=== PATIENT | male | born 1980 | race Caucasian/White ===

== ENCOUNTER 2024-12-18 11:22 | Inpatient (IN) ==
[2024-12-18 12:23] LABS: Hematocrit (blood only) 49.1 % (42.0-52.0); Hemoglobin 17.5 g/dl (14.0-18.0); Mean Corpuscular Hemoglobin 29.9 pg (25.0-34.0); Mean Corpuscular Hgb Conc 35.6 g/dL (32.0-36.0); Mean Corpuscular Volume 83.8 fL (80.0-100.0); Mean Platelet Volume 9.9 fL (9.4-12.4); Platelet Count 243 K/uL (130-400); RDW Standard Deviation 36.6 fL (36.4-46.3); Red Blood Count 5.86 M/uL (4.70-6.10); White Blood Count 5.83 K/ul (4.8-10.8)
[2024-12-18 12:35] LABS: Albumin Globulin Ratio 1.3 (0.9-2); Albumin Level 5.1 gm/dl (3.4-5.0); BUN Creatinine Ratio 7.3 (10-20); Bilirubin,Total 1.4 mg/dl (0.2-1.0); Calcium 9.5 mg/dl (8.6-10.3); Creatinine Clr Calc Pharmacy 27.6 ml/min; Globulin 3.8 gm/dl (2.5-4.0); Potassium 3.4 mmol/L (3.5-5.1); Total Protein 8.9 gm/dl (6.0-8.3)
[2024-12-18 12:51] LABS: Basophils # (auto) 0.06 K/uL (0.00-0.20); Dohle Bodies 1+; Eosinophils # (auto) 0.02 K/uL (0.00-0.50); Eosinophils % (auto) 0.3 %; Immature Granulocytes # (auto) 0.05 K/uL (0.01-0.20); Immature Granulocytes % (auto) 0.9 %; Lymphocytes # (auto) 0.45 K/uL (1.20-3.40); Lymphocytes % (auto) 7.7 %; Monocytes # (auto) 0.51 K/uL (0.11-0.59); Monocytes % (auto) 8.7 %; Neutrophils # (auto) 4.74 K/uL (1.40-6.50); Neutrophils % (auto) 81.4 %; Toxic Vacuolation 2+
--- NOTE | 2024-12-18 12:53 | Emergency Department Note ---
Impression & Plan Salmonella gastroenteritis, ROMAINE (acute kidney injury), Hypokalemia, Dehydration, Hyponatremia, Nausea vomiting and diarrhea, Recent foreign travel ED Provider Note CHIEF COMPLAINT: Diarrhea, chills, nausea, fatigue HISTORY OF PRESENTING ILLNESS: The patient is a 44-year-old male who presents to the emergency department stating that he has had nonstop diarrhea for the past 2 days. Confirms recent travel to [facility]. 1 episode of vomiting today and intermittent abdominal pain. He states that he is exhausted and feels very weak. Denies fevers, chest pain, shortness of breath, URI symptoms, urinary symptoms, sick contacts. REVIEW OF SYSTEMS: See HPI for pertinent positives and pertinent negatives. ALLERGIES: NKDA MEDICATIONS: Tamsulosin PAST MEDICAL HISTORY: See below PHYSICAL EXAM: VITALS: Vitals are noted on the nurse's note and reviewed by myself. Vital signs stable. GENERAL: 44-year-old male, ill-appearing, sitting hunched over wrapped in a blanket, in no acute distress, nondiaphoretic, well-developed well-nourished. SKIN: Capillary refill less than 2 seconds. HEENT: Normocephalic. PERRLA. EOMI. Nares patent. Mucous membranes moist. Neck is supple without nuchal rigidity. HEART: Regular rate and rhythm without murmurs gallops or rubs. LUNGS: Clear to auscultation bilaterally without wheezes, rales or rhonchi. No retractions or accessory muscle use. ABDOMEN: Positive bowel sounds x 4. A mild amount of diffuse tenderness upon palpation. Soft, without masses or organomegaly. No guarding rebound tenderness. NEURO: Patient was alert and oriented. No focal neurological deficits. DIFFERENTIAL DIAGNOSIS: Gastroenteritis, C. difficile, Crohn's disease, ulcerative colitis, food poisoning, food allergy, antibiotic side effect, toxic ingestion or exposure, among others. ED COURSE AND MEDICAL DECISION MAKING: HISTORY FROM INDEPENDENT HISTORIAN: The patient himself and his . MEDICATIONS GIVEN: INTERPRETATION OF LABS: I interpreted the labs with full lab results as below in the lab section of this note. Pertinent lab results discussed in the MDM section below. INTERPRETATION OF IMAGING: Imaging studies were interpreted by myself and read by radiology as per the imaging section of this note. CONSULTATIONS: [facility] on-call hospitalist - I presented the patient to the on-call hospitalist and informed them of his Salmonella GI infection, acute kidney injury, and electrolyte abnormalities. On exam the patient was weak appearing and was unable to tolerate oral fluids and food. The patient was admitted to medicine and they confirmed that they would evaluate the patient. MDM SUMMARY: The patient is a 44-year-old male presents the emergency department stating that he has had nonstop diarrhea for the past 2 days. Confirms recent travel to [facility]. 1 episode of vomiting today and intermittent abdominal pain. Denies fevers, chest pain, shortness of breath, URI symptoms, urinary symptoms, and sick contacts. On exam the patient is ill-appearing and is sitting hunched over wrapped in a blanket. His vitals are stable and he is afebrile. Capillary refill is less than 2 seconds. HEENT exam is unremarkable. Chest auscultation reveals RRR without murmurs. The lungs are clear to auscultation bilaterally. Positive bowel sounds appreciated in all 4 quadrants. A mild amount of diffuse tenderness upon palpation. Soft without masses. Patient confirms that he feels exhausted and very weak. He is not able to tolerate oral fluids and food. Due to the patient's symptoms a CBC, CMP, urinalysis, and stool BioFire was ordered. 4 mg Zofran IV, 1000 mg Tylenol, and 1 L normal saline was given for symptom management. No leukocytosis WBC normal 523. RBC normal 5.86. Hemoglobin hematocrit normal 17.5/49.1. Sodium lowered 134. Potassium low at 3.4. Chloride lowered 93. BUN elevated 28. Creatinine elevated 3.86. Total bilirubin elevated 1.4. Magnesium normal 1.9. Urinalysis shows 2+ protein, trace ketones, 1+ blood. Stool BioFire results positive for Salmonella. Patient was informed of all of his laboratory results. Due to the patient's significant dehydration, electrolyte abnormalities, and ROMAINE the patient was admitted to the hospitalist team. [facility] hospitalist consultation can be seen in detail above. The patient was admitted to medicine and the remainder of his care was provided by the hospitalist medicine team. All the patient's questions were answered. DIAGNOSIS: Salmonella gastroenteritis, ROMAINE, hypokalemia, dehydration, hyponatremia, nausea and vomiting, diarrhea, recent foreign travel The chart was completed utilizing [employer] [place] voice recognition software. Grammatical errors, random word insertions, pronoun errors, and incomplete sentences are an occasional consequence of this system due to software limitations, ambient noise, and hardware issues. Any formal questions or concerns about the content, text, or information contained within the body of this dictation should be directly addressed to the provider for clarification. Past Med/Surg History Problem List (Updated 12/18/24 @ 17:47 by Chelsea Cedeno PA-C) Recent foreign travel (Acute) Nausea vomiting and diarrhea (Acute) Hyponatremia (Acute) Dehydration (Acute) Hypokalemia (Acute) BPH (benign prostatic hyperplasia) ROMAINE (acute kidney injury) (Acute) Salmonella gastroenteritis (Acute) Social History Smoking Status: Never smoker Hx Alcohol Use: No Hx Substance Use: No Preferred Language: Czech Communication Ability: Effective General Partner Required: No Current Living Situation: Spouse Feels Safe at Home: Yes Safety Concerns: Feels Safe At This Time Assistive Devices: None Allergies Allergies Allergy/AdvReac Type Severity Reaction Status Date / Time No Known Allergies Allergy Unverified 12/18/24 13:21 Home Meds Home Medications Medication Instructions Recorded Confirmed tamsulosin 0.4 mg capsule 0.4 mg PO HS 12/18/24 12/18/24 zolpidem 10 mg tablet 10 mg PO HS PRN Sleep 12/18/24 12/18/24 Results & Data (ED) Vital Signs Vital Signs - 24 hr 12/18/24 11:35 12/18/24 13:52 12/18/24 13:56 Temperature 36.9 C Temperature Source Temporal Artery Scan Pulse Rate 97 H 85 Pulse Rate [Apical] 82 Respiratory Rate 20 18 Respiratory Effort / Characteristics Non-Labored Non-Labored Spontaneous Respiratory Depth Normal Blood Pressure 113/77 Blood Pressure [Right Arm] 108/87 Blood Pressure Mean 89 Blood Pressure Mean [Right Arm] 94 Blood Pressure Position [Right Arm] Lying Pulse Oximetry 99 95 Oxygen Delivery Method Room Air Room Air Sepsis Recent Fever Within 48 Hours No Sepsis New/Unexplained Change in Mental Status No Sepsis Action Taken by Nursing No Action Required Laboratory Data 12/19/24 07:01 12/19/24 07:01 Lab Results 12/18/24 12/18/24 Range/Units 12:05 12:06 WBC 5.83 (4.8-10.8) K/ul RBC 5.86 (4.70-6.10) M/uL Hgb 17.5 (14.0-18.0) g/dl Hct 49.1 (42.0-52.0) % MCV 83.8 (80.0-100.0) fL MCH 29.9 (25.0-34.0) pg MCHC 35.6 (32.0-36.0) g/dL RDW Std Deviation 36.6 (36.4-46.3) fL RDW Coeff of Carie 12.0 (11.5-14.5) % Plt Count 243 (130-400) K/uL MPV 9.9 (9.4-12.4) fL Immature Gran % (Auto) 0.9 % Neut % (Auto) 81.4 % Lymph % (Auto) 7.7 % [place] % (Auto) 8.7 % Eos % (Auto) 0.3 % Baso % (Auto) 1.0 % Neut # (Auto) 4.74 (1.40-6.50) K/uL Lymph # (Auto) 0.45 L (1.20-3.40) K/uL [place] # (Auto) 0.51 (0.11-0.59) K/uL Eos # (Auto) 0.02 (0.00-0.50) K/uL Baso # (Auto) 0.06 (0.00-0.20) K/uL Immature Gran # (Auto) 0.05 (0.01-0.20) K/uL Toxic Vacuolation 2+ Dohle Bodies 1+ Sodium 134 L (136-145) mmol/L Potassium 3.4 L (3.5-5.1) mmol/L Chloride 93 L (98-107) mmol/L Carbon Dioxide 26 (21-32) mmol/L Anion Gap 15 H (3-11) BUN 28 H (6-23) mg/dl Creatinine 3.86 H (0.6-1.4) mg/dl Est Cr Clr Drug Dosing 27.6 ml/min eGFR 18.59 BUN/Creatinine Ratio 7.3 L (10-20) Glucose 127 H (70-99(Fasting)) mg/dl Calcium 9.5 (8.6-10.3) mg/dl Magnesium 1.9 (1.7-2.4) mg/dl Total Bilirubin 1.4 H (0.2-1.0) mg/dl AST 19 (13-39) U/L ALT 20 (7-52) U/L Alkaline Phosphatase 64 (34-104) U/L Total Protein 8.9 H (6.0-8.3) gm/dl Albumin 5.1 H (3.4-5.0) gm/dl Globulin 3.8 (2.5-4.0) gm/dl Albumin/Globulin Ratio 1.3 (0.9-2) Stl C. cayetanensis PCR Not Detected (NotDetected) Stool Rotavirus A PCR Not Detected (NotDetected) Stl Adenov F 40/41 PCR Not Detected (NotDetected) Stool Astrovirus (PCR) Not Detected (NotDetected) Stool Campylobacter PCR Not Detected (NotDetected) Stool Cryptosporidium PCR Not Detected (NotDetected) Stl E.coli Shiga Tox PCR Not Detected (NotDetected) Stl Enterotoxigenic E PCR Not Detected (NotDetected) Stool EPEC (PCR) Not Detected (NotDetected) Stool EAEC (PCR) Not Detected (NotDetected) Stl E. histolytica PCR Not Detected (NotDetected) Stool Giardia Lamblia PCR Not Detected (NotDetected) Stool Salmonella PCR DETECTED A* (NotDetected) Stool Sapovirus (PCR) Not Detected (NotDetected) Stl P. shigelloides PCR Not Detected (NotDetected) Stl Shigella/EIEC PCR Not Detected (NotDetected) St Y.enterocolitica PCR Not Detected (NotDetected) Stool Vibrio (PCR) Not Detected (NotDetected) Stl Vibrio cholerae PCR Not Detected (NotDetected) Stl Norovirus GI/GII PCR Not Detected (NotDetected) Administered Medications Heparin Sodium (Porcine) (Heparin Sod 5,000 Unit/0.5 Ml Vial) 5,000 units SQ Q12 CHELY Stop: 01/17/25 20:59 Last Admin: 12/19/24 07:55 Dose: Not Given Documented By: Admin: 12/18/24 20:20 Dose: 5,000 units Documented By: MAGY Ceftriaxone Sodium (Rocephin) 2,000 mg in 50 mls @ 100 mls/hr IV Q24H CHELY Stop: 12/29/24 13:59 Last Infusion: 12/19/24 14:06 Dose: Infused Documented By: Admin: 12/19/24 13:04 Dose: 100 mls/hr Documented By: ASHLEY Tamsulosin HCl (Tamsulosin Hcl 0.4 Mg Cap) 0.4 mg PO HS CHELY Stop: 01/17/25 20:59 Last Admin: 12/18/24 20:20 Dose: 0.4 mg Documented By: MAGY Discontinued Medications Acetaminophen (Ofirmev) 1,000 mg in 100 mls @ 400 mls/hr IV NOW STA Stop: 12/18/24 13:35 Last Infusion: 12/18/24 14:22 Dose: Infused Documented By: JOSE ALEJANDRO Admin: 12/18/24 13:47 Dose: 400 mls/hr Documented By: JOSE ALEJANDRO Sodium Chloride (Nss) 1,000 mls @ 999 mls/hr IV .Q1H1M ONE Stop: 12/18/24 14:21 Last Infusion: 12/18/24 14:46 Dose: Infused Documented By: JOSE ALEJANDRO Admin: 12/18/24 13:46 Dose: 999 mls/hr Documented By: JOSE ALEJANDRO Ceftriaxone Sodium (Rocephin) 2,000 mg in 50 mls @ 100 mls/hr IV Q24H CHELY Stop: 12/20/24 14:14 Last Infusion: 12/18/24 16:24 Dose: Infused Documented By: JOSE ALEJANDRO Admin: 12/18/24 14:22 Dose: 100 mls/hr Documented By: JOSE ALEJANDRO Lactated Ringer's (Lr) 1,000 mls @ 125 mls/hr IV .Q8H CHELY Stop: 12/19/24 15:44 Last Infusion: 12/19/24 16:00 Dose: Infused Documented By: Admin: 12/19/24 07:53 Dose: 125 mls/hr Documented By: Infusion: 12/19/24 07:53 Dose: Infused Documented By: Admin: 12/19/24 00:27 Dose: 125 mls/hr Documented By: Infusion: 12/19/24 00:14 Dose: Infused Documented By: Admin: 12/18/24 16:14 Dose: 125 mls/hr Documented By: JOSE ALEJANDRO Potassium Chloride (K Paul / Wtr) 10 meq in 100 mls @ 100 mls/hr IV Q1H CHELY Stop: 12/18/24 18:59 Last Infusion: 12/18/24 20:20 Dose: Infused Documented By: Admin: 12/18/24 19:15 Dose: 100 mls/hr Documented By: Infusion: 12/18/24 18:40 Dose: Infused Documented By: Admin: 12/18/24 17:19 Dose: 100 mls/hr Documented By: Infusion: 12/18/24 17:19 Dose: Infused Documented By: Admin: 12/18/24 16:20 Dose: 100 mls/hr Documented By: JOSE ALEJANDRO Magnesium Sulfate/Dextrose (Magnesium Sulfate / D5w) 1 gm in 100 mls @ 100 mls/hr IV NOW STA Stop: 12/18/24 16:50 Last Infusion: 12/18/24 17:20 Dose: Infused Documented By: Admin: 12/18/24 16:16 Dose: 100 mls/hr Documented By: JOSE ALEJANDRO Potassium Chloride (K Paul / Wtr) 10 meq in 100 mls @ 100 mls/hr IV Q1H CHELY Stop: 12/19/24 17:14 Last Infusion: 12/19/24 17:41 Dose: Infused Documented By: Admin: 12/19/24 16:30 Dose: 100 mls/hr Documented By: Infusion: 12/19/24 16:30 Dose: Infused Documented By: Admin: 12/19/24 15:34 Dose: 100 mls/hr Documented By: ASHLEY Loperamide HCl (Loperamide Hcl 2 Mg Cap) 2 mg PO NOW STA Stop: 12/19/24 02:36 Last Admin: 12/19/24 02:52 Dose: 2 mg Documented By: MAGY Ondansetron HCl (Ondansetron Inj 2 Mg/Ml 2 Ml Vial) 4 mg IV NOW STA Stop: 12/18/24 13:22 Last Admin: 12/18/24 13:46 Dose: 4 mg Documented By: JOSE ALEJANDRO Potassium Chloride (Potassium Chloride Crtab 20 Meq Tabcr) 40 meq PO NOW STA Stop: 12/19/24 15:10 Last Admin: 12/19/24 15:35 Dose: 40 meq Documented By: ASHLEY Discharge Plan Visit Data Chief Complaint: Flu Like Symptoms Stated Complaint: DIARRHEA, CHILLS, NAUSEA, FATIGUE ED Provider: Cheri Roberts ED Midlevel Provider: Chelsea Cedeno Discharge Problem: Salmonella gastroenteritis, ROMAINE (acute kidney injury), Hypokalemia, Dehydration, Hyponatremia, Nausea vomiting and diarrhea, Recent foreign travel Patient Disposition: Admitted As Inpatient Condition: Good Discharge Instructions Interventions: ED Discharge Assessment Last Done: 12/18/24 16:47
[2024-12-18 13:36] LABS: Adenovirus F 40/41 PCR Not Detected (NotDetected); Astrovirus PCR Not Detected (NotDetected); Campylobacter PCR Not Detected (NotDetected); Cryptosporidium PCR Not Detected (NotDetected); Cyclospora cayetanensis PCR Not Detected (NotDetected); Entamoeba histolytica PCR Not Detected (NotDetected); Enteroaggregative E.coli(EAEC) Not Detected (NotDetected); Enteropathogenic E.coli (EPEC) Not Detected (NotDetected); Enterotoxigenic E.coli (ETEC) Not Detected (NotDetected); Giardia lamblia PCR Not Detected (NotDetected); Norovirus GI/GII PCR Not Detected (NotDetected); Plesiomonas shigelloides PCR Not Detected (NotDetected); Rotavirus A PCR Not Detected (NotDetected); Sapovirus PCR Not Detected (NotDetected); Shiga-like Toxin E.coli (STEC) Not Detected (NotDetected); Shigella/Enteroinvasive E.coli Not Detected (NotDetected); Vibrio cholerae PCR Not Detected (NotDetected); Vibrio species PCR Not Detected (NotDetected); Yersinia enterocolitica PCR Not Detected (NotDetected)
[2024-12-18] MEDS: SODIUM CHLORIDE 0.9% 1,000 ML IV ONE (13:46)
[2024-12-18] MEDS: ONDANSETRON INJ 2 MG/ML 2 ML VIAL IV STA (13:46)
[2024-12-18] MEDS: ACETAMINOPHEN 1,000 MG/100 ML VIAL IV STA (13:47)
[2024-12-18 14:05] LABS: Salmonella PCR DETECTED (NotDetected)
[2024-12-18] MEDS: cefTRIAXone SODIUM 2,000 MG/50 ML BAG IV SCH (14:22)
--- NOTE | 2024-12-18 14:42 | History & Physical Report ---
Date of Service December 18, 2024 Assessment & Plan (1) Dehydration: (2) Salmonella gastroenteritis: Plan: Raf Cantu is a relatively healthy 44y/o M with PMHx significant for BPH with LUTS and mild intermittent asthma without complication who presented to the ED with complaints of nausea, vomiting and diarrhea since last Wednesday after a recent trip to [facility]. Found to have an ROMAINE in the setting of poor oral intake 2/2 salmonella gastroenteritis. Relatively hypotensive but otherwise VSS on admission. Initial laboratory evaluation reviewed. No leukocytosis. Stool salmonella PCR positive. Lactate negative. S/p 2g IV Rocephin and 1L NSS in ED. Contact precautions. Continue IV Rocephin 2g Q24H and fluid resuscitation as per below given ROMAINE. PRN antiemetics. (3) ROMAINE (acute kidney injury): Plan: Noted to have an ROMAINE with Cr of 3.86 on admission. Baseline Cr ~1.1-1.2 per chart review. Suspect due to hypovolemia/dehydration in the setting of underlying gastrointestinal illness as per above. BUN 28. Currently producing urine; will defer additional lab/imaging diagnostic pending fluid resuscitation. S/p 1L NSS in ED; continue LR's @ 125cc/hr for now. Avoid nephrotoxic medications when able. Monitor renal function closely with daily labs and renally dose medications when able. (4) Hypokalemia: Plan: Likely 2/2 poor oral intake as per above. K+ 3.4 on admission. Replete with 10mEq KCl x 3 bags for now. Continue to monitor and replete PRN. (5) BPH (benign prostatic hyperplasia): Plan: Chronic, stable. Follows with [facility]. Continue Flomax. DVT Prophylaxis: SQ Heparin Code Status: FULL CODE PCP: Chen Frankel, Disposition: Admit to med/telemetry for further inpatient evaluation and management. Patient seen in collaboration with Dr. Coburn. Please see addendum. I spent a total of 45 minutes coordinating, documenting, and providing care for this patient excluding time spent in the performance of separately billed services or time spent by another provider/QHP. This included personally reviewing all current laboratories and imaging studies, medical reconciliation, outpatient chart review and discussion with specialists. This chart was completed in part utilizing Speech Voice Recognition Software. Grammatical errors, random word insertions, pronoun errors, and incomplete sentences are an occasional consequence of this system due to software limitations, ambient noise, and hardware issues. Any formal questions or concerns about the content, text, or information contained within the body of this dictation should be directly addressed to the provider for clarification. History of Present Illness Chief Complaint: N/V/D, Dehydration Primary Care Provider: NO PCP Raf Cantu is a relatively healthy 44y/o M with PMHx significant for BPH with LUTS and mild intermittent asthma without complication who presented to the ED with complaints of nausea, vomiting and diarrhea since last Wednesday. History obtained from the patient, at bedside, discussion with ED provider and associated chart review. Recent travel to [facility] for vacation. Traveled home over the weekend. Started to develop loose, watery diarrhea last Wednesday. Had an episode of vomiting this past Wednesday but none since. Denies any bloody diarrhea but endorses poor oral intake due to nausea and gastrointestinal upset. No abdominal pain but reports some generalized cramping before the diarrhea occurs. Mentions that he has been passing loose, watery bowel movements every 10-20 minutes since last Wednesday. Had some chills with associated sweating this past Wednesday but no recorded fevers. Denies any dysuria or hematuria although does note decreased urine output in the setting of poor oral intake. No skin rashes. Relatively hypotensive but otherwise VSS on admission. Initial laboratory evaluation reviewed. Stool salmonella PCR positive. No leukocytosis. Na 134, K+ 3.4 and BUN 28. Evidence of ROMAINE with Cr of 3.86; anion gap of 15. Allergies Allergy/AdvReac Type Severity Reaction Status Date / Time No Known Allergies Allergy Unverified 12/18/24 13:21 Home Medications Medication Instructions Recorded Confirmed Type tamsulosin 0.4 mg capsule 0.4 mg PO HS 12/18/24 12/18/24 History zolpidem 10 mg tablet 10 mg PO HS PRN Sleep 12/18/24 12/18/24 History Past Med/Surg History Problem List (Updated 12/18/24 @ 17:47 by Chelsea Cedeno PA-C) Recent foreign travel (Acute) Nausea vomiting and diarrhea (Acute) Hyponatremia (Acute) Dehydration (Acute) Hypokalemia (Acute) BPH (benign prostatic hyperplasia) ROMAINE (acute kidney injury) (Acute) Salmonella gastroenteritis (Acute) Social History Smoking Status: Never smoker Preferred Language: Khmer Feels Safe at Home: Yes Review of Systems Review of Systems: At least ten systems reviewed and negative, except as noted in the HPI. Physical Exam Physical Exam: General: NAD, laying down in bed, conversing appropriately. A+Ox3. at bedside. Decreased skin turgor. HEENT: Normocephalic, atraumatic. Conjunctivae normal. External ear and nose normal, oropharynx quite dry. Respiratory: Normal respiratory effort, lungs clear to auscultation bilaterally. No accessory muscle use. Cardiovascular: Mildly tachycardic rate, regular rhythm. Normal peripheral pulses. No BLE edema. Abdomen/GI: Normoactive bowel sounds, soft. Nondistended, nontender to palpation in all quadrants. Extremities/Musculoskeletal: No cyanosis or clubbing, extremities motor strength intact, moves all extremities. Results & Data Results & Data Vital Signs (Past 12 Hours) Vital Signs Temp Pulse Pulse Resp BP BP Pulse Ox 12/18/24 13:56 85 12/18/24 13:52 82 18 108/87 95 12/18/24 11:35 36.9 C 97 H 20 113/77 99 O2 Del Method 12/18/24 13:56 12/18/24 13:52 Room Air 12/18/24 11:35 Room Air Laboratory Results Short CBC 12/18/24 Range/Units 12:06 WBC 5.83 (4.8-10.8) K/ul Hgb 17.5 (14.0-18.0) g/dl Hct 49.1 (42.0-52.0) % Plt Count 243 (130-400) K/uL [facility] 12/18/24 12:06 Sodium 134 L Potassium 3.4 L Chloride 93 L Carbon Dioxide 26 BUN 28 H Creatinine 3.86 H Glucose 127 H Calcium 9.5 Liver Function 12/18/24 Range/Units 12:06 Total Bilirubin 1.4 H (0.2-1.0) mg/dl AST 19 (13-39) U/L ALT 20 (7-52) U/L Alkaline Phosphatase 64 (34-104) U/L Albumin 5.1 H (3.4-5.0) gm/dl Medications Administered Ceftriaxone Sodium (Rocephin) 2,000 mg in 50 mls @ 100 mls/hr IV Q24H CHELY Stop: 12/20/24 14:14 Last Admin: 12/18/24 14:22 Dose: 100 mls/hr Documented By: JOSE ALEJANDRO Discontinued Medications Acetaminophen (Ofirmev) 1,000 mg in 100 mls @ 400 mls/hr IV NOW STA Stop: 12/18/24 13:35 Last Infusion: 12/18/24 14:22 Dose: Infused Documented By: JOSE ALEJANDRO Admin: 12/18/24 13:47 Dose: 400 mls/hr Documented By: JOSE ALEJANDRO Sodium Chloride (Nss) 1,000 mls @ 999 mls/hr IV .Q1H1M ONE Stop: 12/18/24 14:21 Last Admin: 12/18/24 13:46 Dose: 999 mls/hr Documented By: JOSE ALEJANDRO Ondansetron HCl (Ondansetron Inj 2 Mg/Ml 2 Ml Vial) 4 mg IV NOW STA Stop: 12/18/24 13:22 Last Admin: 12/18/24 13:46 Dose: 4 mg Documented By: JOSE ALEJANDRO Code Status & VTE Plan Code Status FULL CODE Supervising Physician Co-Signing Physician Notes Patient seen and examined at bedside. Recent travel from [facility], at [facility] and had possible exposures to Salmonella. Frequent diarrhea, up to every 20 minutes, for past 5 days. Feels fatigued, weak. On exam, appears dehydrated, no tenderness to palpation of abdomen. Gastroenteritis 2/2 acute to subacute Salmonella infection, as evidenced by positive stool biofire. Labs strongly suggestive of significant dehydration, as evidenced by elevated creatinine/BUN, low chloride and Na. Lactic acid elevated and downtrended with fluids. Imaging and blood cultures not necessary currently given benign exam and not fitting sepsis criteria. Will get imaging and cultures if condition worsens. Treatment will be further fluid resuscitation, ceftriaxone (patient has moderate to severe infection and is candidate for abx treatment, likely 5-7 day course). Expect 1-2 day stay in the hospital. I have seen and discussed the case with the collaborating advanced practitioner. I agree with the above H&P. I have reviewed and confirmed the patients medical history, the findings on physical examination, and the patients diagnosis and treatment plan with [place] [facility] and agree with the information documented. I spent a total of 20 minutes coordinating, documenting, and providing care for this patient excluding time spent in the performance of separately billed services. All of the aforementioned completed outside of collaborating with the assigned advanced practitioner for a full treatment plan. I have reviewed the advanced practitioner's documentation, and I agree with, and take responsibility for the plan of care (5) BPH (benign prostatic hyperplasia) Lower urinary tract symptom detail: unspecified Lower urinary tract symptom presence: symptoms present Qualified Code(s): N40.1 - Benign prostatic hyp erplasia with lower urinary tract symptoms
[2024-12-18 15:12] LABS: Magnesium 1.9 mg/dl (1.7-2.4)
[2024-12-18] MEDS: LACTATED RINGER'S 1,000 ML IV SCH (16:14)
[2024-12-18] MEDS: MAGNESIUM SULFATE / D5W 1 GM/100 ML BAG IV STA (16:16)
[2024-12-18] MEDS: POTASSIUM CHLORIDE / WTR 10 MEQ/100 ML PLCT IV SCH (16:20)
[2024-12-18] MEDS ORDERED: ONDANSETRON INJ 2 MG/ML 2 ML VIAL IV PRN (16:45)
[2024-12-18] MEDS ORDERED: ACETAMINOPHEN 325 MG TAB PO PRN (16:45)
[2024-12-18] MEDS ORDERED: MAGNESIUM HYDROXIDE SUSP 30 ML UDC PO PRN (16:45)
[2024-12-18] MEDS ORDERED: POLYETHYLENE (MIRALAX) 17 GM PACK PO PRN (16:45)
--- OUTSIDE RECORDS SUMMARY | 2024-12-18 18:47 | External Medical Summary | Summary of Care ---
Author Name Unknown Organization [facility] Address [address] [facility] [place] [address] Phone [phone] Care Team Providers Care Casing Cooker Name Role Phone Unavailable Primary Care Provider Unavailabl e Reason for Visit * Reason Comments Acute Encounter Details Date Type Department Care Team (Late st Contact Info) Description 07/12/2024 12:40 PM EDT Telemedicine Family Practice [facility] [address] [place] [address] Sultana Dickerson CRNP [address] [place] [phone] URI with cough and congestion*; Mild intermittent asthma with acute exacerbation Allergies No known active allergiesdocumented as of this encounter (statuses as of 07/12/2024) Medications Medication Sig Dispensed Refills Start Date End Date Status Zolpidem Tartrate 10 MG Oral Tablet (Ambien)Indication s:Primary insomnia Take by mouth 1 Tablet as needed before bedtime for Sleep. 15 Tablet 05/19/2022 Active Tamsulosin HCl 0.4 MG Oral Capsule (Flomax)Indication s:BPH with obstruction/lower urinary tract symptoms Take 1 Capsule by mouth in the morning. 90 Capsule 3 05/18/2024 Active Albuterol Sulfate HFA 108 (90 Base) MCG/ACT Inhalation Aerosol Solution Inhale 2 Puffs by mouth every 6 hours as needed for Cough, Shortness of Breath or Wheezing. 18 g 1 07/12/2024 Active Benzonatate 100 MG Oral Capsule Take 1 Capsule by mouth 3 times a day as needed for Cough. 30 Capsule 1 07/12/2024 Active predniSONE 20 MG Oral Tablet (Deltasone) Take 1 Tablet by mouth in the morning for 5 days. 5 Tablet 07/12/2024 4 Active Albuterol Sulfate HFA 108 (90 Base) MCG/ACT Inhalation Aerosol SolutionIndication s:Mild intermittent asthma without complication Inhale by mouth 2 Puffs every 6 hours as needed for Cough, Shortness of Breath or Wheezing. 18 g 2 11/18/2021 4 Discontinue d(Refill) documented as of this encounter (statuses as of 07/12/2024) Active Problems Problem Noted Date Diagnosed Date Mild intermittent asthma without complication documented as of this encounter (statuses as of 07/12/2024) Immunizations Name Administration Dates Next Due Pneumococcal Conjugate Vacci ne, 20-valent ([id number]) 05/19/2022 Pneumococcal Polysaccharide PPV23 (Pneumovax) 09/25/2013 Seasonal Influenza Vac., MDV , IM, 0.5 mL (Fluzone) 08/30/2013 Seasonal Influenza, PF, 6 M & above, IM , (FluLaval or Fluzone) 07/31/2022,07/18/2018,09/17/2017 TDAP (age 10 and older)(Boostrix) 03/31/2024, documented as of this encounter Social History Tobacco Use Types Packs/Day Years Used Date Smoking Tobacco: Never Smokeless Tobacco: Never Alcohol Use Standard Drinks/Week Comments Yes 2 (1 standard drink = 0.6 oz pur e alcohol) every night PHQ-2 Answer Date Recorded PHQ Adult Total Score 0 05/19/2022 Hunger Vital Sign Answer Date Recorded Within the past 12 months, y ou worried that your food would run out before you got the money to buy more. Never true 05/19/20 22 Within the past 12 months, t he food you bought just didn't last and you didn't have money to get more. Never true 05/19/2022 Utilities Answer Date Recorded Do you have trouble paying y our heating, water, or electric bill? (Adult - for ages 18 years and over) Not on file 03/21/2024 Is your family able to pay t he heat, water, or electric bill? (Household - for ages 0-17 years) Not on file 03/21/2024 Does your family have access to good internet? (Household - for ages 0-17 years) Not on file 03/21/2024 Social Connections Answer Date Recorded How often do you feel lonely or isolated from those around you? (Adult - for ages 18 years and over) Not on file 03/21/2024 Sex and Gender Information Value Date Recorded Sex Assigned at Male 05/19/2022 4:41 PM EDT Gender Identity Male 05/19/2022 4:41 PM EDT Sexual Orientation Straight 05/19/2022 4: 41 PM EDT Job Start Date Occupation Industry Not on file Not on file Not on file documented as of this encounter Progress Notes * Sultana Dickerson CRNP - 07/12/2024 12:43 PM EDT URI Family Medicine Visit Patient location: HOME. I was in a hospital or clinic location. After connecting through [employer],patient was verified with two unique identifiers. 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 Methods to assure confidentiality were taken. Patient acknowledged consent and understanding of pr ivacy and security of the Telemedicine visit. The patient agreed to participate. CC: URI History of Present Illness: Raf Cantu is a 44 year old male presenting with complaints of URI symptoms since Wednesday. 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 Employer: [employer] Tobacco Use Smoking status: Never Smokeless tobacco: Never Vaping Use Vaping status: Never Used Substance and Sexual Activity Alcohol use: Yes Alcohol/week: 2.0 standard drinks of alcohol Types: 2 12 oz of beer per week Comment: every night Drug use: No Sexual activity: Yes Partners: Female Other Topics Concern Not on file Social History Narrative Not on file Social Determinants of Health Financial Resource Strain: Not on file Food Insecurity: No Food Insecurity (05/19/2022) Hunger Vital Sign Worried About Running Out of Food in the Last Year: Never true Ran Out of Food in the Last Year: Never true Transportation Needs: Not on file Social Connections: Unknown (03/21/2024) Social Connections How often do you feel lonely or isolated from those around you? (Adult - for ages 18 years and over): Not on file Housing Stability: Not on file PMH: Past Medical History: Diagnosis Date Asthma in remission Past Surgical History: Procedure Laterality Date COLONOSCOPY, DIAGNOSTIC (RECTUM) 10/11/2023 diverticulosis/hemorrhoids/biopsies show adenomatous and hyperplastic polyps, inflammatory tissue/recall 3 years/COLONOSCOPY FLEXIBLE PROXIMAL DIAGNOSTIC performed by Billy York MD at [facility] PATIENT EDU, ACL REPAIR 2005, 2008 football Current Outpatient Medications Medication Sig Dispense Refill Tamsulosin HCl 0.4 MG Oral Capsule (Flomax) Take 1 Capsule by mouth in the morning. 90 Capsule 3 Zolpidem Tartrate 10 MG Oral Tablet (Ambien) Take by mouth 1 Tablet as needed before bedtime for Sleep. 15 Tablet 0 Albuterol Sulfate HFA 108 (90 Base) MCG/ACT Inhalation Aerosol Solution Inhale by mouth 2 Puffs every 6 hours as needed for Cough, Shortness of Breath or Wheezing. 18 g 2 No current facility-administered medications for this visit. Review of patient's allergies indicates: No Known Allergies Most Recent Immunizations Administered Date(s) Administered Pneumococcal Conjugate Vaccine, 20-valent ([id number]) 05/19/2022 Pneumococcal Polysaccharide PPV23 (Pneumovax) 09/25/2013 Seasonal Influenza Vac., MDV, IM, 0.5 mL (Fluzone) 08/30/2013 Seasonal Influenza, PF, 6 M & above, IM , (FluLaval or Fluzone) 07/31/2022 TDAP (age 10 and older)(Boostrix) 03/31/2024 Physical Exam: There were no vitals taken for this visit. Physical Exam HENT: Head: Normocephalic. Pulmonary: Effort: Pulmonary effort is normal. Neurological: General: No focal deficit present. Mental Status: He is alert and oriented to person, place, and time. Psychiatric: Mood and Affect: Mood normal. Behavior: Behavior normal. Thought Content: Thought content normal. Judgment: Judgment normal. Assessment and Plan: 1. URI with cough and congestion ON DAY 4 Covid testing at home negative Nontoxic and afebrile Add tessalon 2. Mild intermittent asthma with acute exacerbation Mild Add albuterol 2 puffs every 4 hours Add predniosne x 5 days Recommend supportive care including: -Humidifier -Rest -Push fluids -Reviewed pathophysiology of viral URI -Quarantine until covid results are back -Recommend handwashing and covering cough -Reviewed signs and symptoms in which to seek medical care I have advised the patient to call our office incase of any worsening or new symptoms. I spent a total of 20-29 minutes (exact time 20 mins) on the date of service in preparation, delivery, and documentation of the care provided to Raf Cantu excluding any time spent in the performance of separately billed services or time spent by another provider/QHP. RENA Bolden, DREW [facility] documented in this encounter Plan of Treatment Upcoming Encounters Date Type Department Care Team (Late st Contact Info) Description 05/24/2025 8:00 AM EDT Office Visit Urology [facility] [address] [place] [address] Danya Chanel PA-C [address] [place] [address] Scheduled Procedures Name Priority Associated Diagnoses Date/Ti me COLONOSCOPY FLEXIBLE PROXIMA L DIAGNOSTIC Recall Crohn's colitis (HCC) COLONOSCOPY FLEXIBLE PROXIMA L DIAGNOSTIC Recall History of colonic polyps Health Maintenance Due Date Last Done Comments Hepatitis B Vaccine (1 of 3 - 19+ 3-dose series) 1997 *SPIROMETRY ONCE FOR ASTHMA-ADULT 08/27/2022 Cologuard 2023 Fecal Occult Blood Test 2023 Sigmoidoscopy 2023 Depression Screening 05/19/2023 05/19/2022 COVID-19 Vaccine ( season) 2024 Influenza Vaccine (FLU shot) (#1) 2024 07/31/2022, 07/18/2018, 07/18/2018 (Course Completed), Additional history exists Diabetes Screening 04/08/2026 04/08/2023, 0 05/22/2022, 11/19/2021, Additional history exists Colonoscopy 10/11/2026 10/11/2023, 10/11/2023 Colorectal Cancer Screening 10/11/2026 Lipid Panel 04/20/2029 04/20/2024, 05/04, 06/26/2019, Additional history exists DTap/Tdap Vaccines (3 - Td or Tdap) 03/31/2034 03/31/2024, 08/30/2013 Pneumococcal Vaccine: Pediatrics (0 to 5 Years) and At-Risk Patients (6 to 64 Years) Completed 05/19/2022, 09/25/2013 HPV (Gardasil) Vaccine Aged Out No lo nger eligible based on patient's age to complete this topic MENINGOCOCCAL (MENACTRA/MENVEO) Aged Out No longer eligible based on patient's age to complete this topic documented as of this encounter Medical Devices Not on filedocumented as of this encounter Visit Diagnoses Diagnosis URI with cough and congestion- Primary Mild intermittent asthma with acute exacerbation Unspecified asthma, with exacerbation documented in this encounter
--- OUTSIDE RECORDS SUMMARY | 2024-12-18 18:47 | External Medical Summary | Summary of Care ---
Author Name Unknown Organization [facility] Address [address] [place] [address] Phone [phone] Care Team Providers Care Sales Agent Insurance Name Role Phone Unavailable Primary Care Provider Unavailabl e Reason for Visit * Reason Comments Outpatient Testing Encounter Details Date Type Department Care Team (Late st Contact Info) Description 07/10/2024 11:50 AM EDT [facility] [address] [facility] [place] [phone] [facility] [address] [facility] [address] BPH with obstruction/lower urinary tract symptoms Allergies No known active allergiesdocumented as of this encounter (statuses as of 07/10/2024) Medications Medication Sig Dispensed Refills Start Date End Date Status Albuterol Sulfate HFA 108 (90 Base) MCG/ACT Inhalation Aerosol SolutionIndications: Mild intermittent asthma without complication Inhale by mouth 2 Puffs every 6 hours as needed for Cough, Shortness of Breath or Wheezing. 18 g 2 11/18/2021 Active Zolpidem Tartrate 10 MG Oral Tablet (Ambien)Indications: Primary insomnia Take by mouth 1 Tablet as needed before bedtime for Sleep. 15 Tablet 05/19/2022 Active Tamsulosin HCl 0.4 MG Oral Capsule (Flomax)Indications: BPH with obstruction/lower urinary tract symptoms Take 1 Capsule by mouth in the morning. 90 Capsule 3 05/18/2024 Active documented as of this encounter (statuses as of 07/10/2024) Active Problems Problem Noted Date Diagnosed Date Mild intermittent asthma without complication documented as of this encounter (statuses as of 07/10/2024) Immunizations Name Administration Dates Next Due Pneumococcal Conjugate Vacci ne, 20-valent ([id number]) 05/19/2022 Pneumococcal Polysaccharide PPV23 (Pneumovax) 09/25/2013 Seasonal [...] on file documented as of this encounter Plan of Treatment Upcoming Encounters Date Type Department Care Team (Late st Contact Info) Description 05/24/2025 8:00 AM EDT Office Visit Urology Glenn Sweet [address] [place] [address] Danya Chanel PA-C [address] [place] [phone] Pending Results Name Type Priority Associated Diagnoses Date /Time PSA Lab Routine BPH with obstruction/lower urinary tract symptoms 07/10/2024 11:49 AM EDT Scheduled Procedures Name Priority Associated Diagnoses Date/Ti [...] as of this encounter Visit Diagnoses Diagnosis BPH with obstruction/lower urinary tract symptoms Hypertrophy of prostate with urinary obstruction and other lower urinary tract symptoms (LUTS) documented in this encounter
--- OUTSIDE RECORDS SUMMARY | 2024-12-18 18:47 | External Medical Summary | Summary of Care ---
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 Name Role Phone Unavailable Primary Care Provider Unavailabl e Reason for Visit * Reason Comments Cough Chills Encounter Details Date Type Department Care Team (Latest Contact Info) Description 07/15/2024 11:00 AM EDT Convenient Care Visit [facility] [address] [place] [address] Mecca Samson CRNP [address] [place] [address] Acute cough*; Non-recurrent acute suppurative otitis media of both ears without spontaneous rupture of tympanic membranes Allergies No known active allergiesdocumented as of this encounter (statuses as of 07/15/2024) Medications Medication Sig Dispensed Refills Start Date End Date Status Zolpidem Tartrate 10 MG Oral Tablet (Ambien)Indications :Primary insomnia Take by mouth 1 Tablet as needed before bedtime for Sleep. 15 Tablet 05/19/2022 Active Tamsulosin HCl 0.4 MG Oral Capsule (Flomax)Indications :BPH with obstruction/lower urinary tract symptoms Take 1 [...] morning for 5 days. 5 Tablet 07/12/2024 07/17/2024 Active Amoxicillin-Pot Clavulanate 875-125 MG Oral Tablet (Augmentin)Indicati ons:Non-recurrent acute suppurative otitis media of both ears without spontaneous rupture of tympanic membranes Take 1 Tablet by mouth in the morning and 1 Tablet before bedtime. Do all this for 10 days. 20 Tablet 07/15/2024 07/25/2024 Active documented as of this encounter (statuses as of 07/15/2024) Active Problems Problem Noted Date Diagnosed Date Mild intermittent asthma without complication documented as of this encounter (statuses as of 07/15/2024) Immunizations Name Administration Dates Next Due Pneumococcal Conjugate Vacci ne, 20-valent ([id number]) 05/19/2022 Pneumococcal Polysaccharide PPV23 (Pneumovax) 09/25/2013 Seasonal Influenza Vac., MDV , IM, 0.5 mL (Fluzone) 08/30/2013 Seasonal Influenza, PF, 6 M & above, IM , (FluLaval or Fluzone) 07/31/2022,07/18/2018,09/17/2017 TDAP (age 10 and older)(Boostrix) 03/31/2024, documented as of this encounter Social History Tobacco Use Types Packs/Day Years Used Date Smoking Tobacco: Never Smokeless Tobacco: Never Tobacco Cessation:Counseling Given: Not Answered Alcohol Use Standard Drinks/Week Comments Yes 2 [...] on file documented as of this encounter Last Filed Vital Signs Vital Sign Reading Time Taken Comments Blood Pressure 118/80 07/15/2024 10:59 AM EDT Pulse 85 07/15/2024 10:59 AM EDT Temperature 36.9 C (98.4 F) 07/15/2024 10:59 AM E DT Respiratory Rate 20 07/15/2024 10:59 AM EDT Oxygen Saturation 97% 07/15/2024 10:59 AM EDT Inhaled Oxygen Concentration - - Weight 94.8 kg (209 lb) 07/15/2024 10:59 AM EDT Height 180.3 cm (5' 11") 07/15/2024 10:59 AM EDT Body Mass Index 29.15 07/15/2024 10:59 AM EDT documented in this encounter Progress Notes * Mecca Samson CRNP - 07/15/2024 11:42 AM EDT [facility] Care Basic Exam Subjective Raf Cantu is a 44 year old male that presents to the [facility] with coughand chills x 1 week. He had a telehealth appointment when it began. He has been using the inhaler and a cough medication but has not started his steroid. Objective BP 118/80 | Pulse 85 | Temp 36.9 C (98.4 F) (Tympanic) | Resp 20 | Ht 1.803 m (5' 11") | Wt 94.8 kg (209 lb) | SpO2 97% | BMI 29.15 kg/m | BSA 2.18 m Body mass index is 29.15 kg/m. Review of Systems Constitutional: Positive for chills and fatigue. HENT: Positive for postnasal drip. Eyes: Negative. Respiratory: Positive for cough. Cardiovascular: Negative. Gastrointestinal: Negative. Genitourinary: Negative. Musculoskeletal: Negative. Skin: Negative. Neurological: Positive for headaches. Physical Exam Vitals and nursing note reviewed. HENT: Head: Normocephalic. Ears: Comments: Bilat TM erythematous and inflamed. R w/ thick, suppurative effusion, L with cloudy effusion. Nose: Comments: Turbinates swollen, minimal nasal drainage. Mouth/Throat: Mouth: Mucous membranes are moist. Pharynx: Posterior oropharyngeal erythema present. Comments: Erythema, posterior oropharynx w/ cobblestoning. Eyes: Conjunctiva/sclera: Conjunctivae normal. Pupils: Pupils are equal, round, and reactive to light. Cardiovascular: Rate and Rhythm: Normal rate and regular rhythm. Pulses: Normal pulses. Heart sounds: Normal heart sounds. Pulmonary: Effort: Pulmonary effort is normal. Comments: Coughing heard during exam. Lungs mostly normal but RLL noticeably diminished. Skin: General: Skin is warm and dry. Neurological: Mental Status: He is alert and oriented to person, place, and time. Past Medical History: Diagnosis Date Asthma in remission Patient Active Problem List Diagnosis Mild intermittent asthma without complication BP Readings from Last 3 Encounters: 07/15/24 118/80 05/29/24 131/80 03/31/24 138/80 Wt Readings from Last 3 Encounters: 07/15/24 94.8 kg (209 lb) 05/29/24 96.8 kg (213 lb 8 oz) 03/31/24 95.7 kg (211 lb) Assessment and plan Acute cough (Primary) - XR CHEST 2 VIEWS; Future; Expected date: 07/15/2024 Non-recurrent acute suppurative otitis media of both ears without spontaneous rupture of tympanic membranes - Amoxicillin-Pot Clavulanate 875-125 MG Oral Tablet (Augmentin); Take 1 Tablet by mouth in the morning and 1 Tablet before bedtime. Do all this for 10 days. Reviewed concerns that with ongoing fatigue and fever/chills a full week out along with diminished RLL sounds that there is potential for a pneumonia. He is willing to get a CXR to be safe. Encouraged him to start the prednisone he was prescribed during his 07/12 telemedicine visit to helptake down inflammation in his chest and upper airways for comfort and to facilitate his sinuses draining. No overt pain over frontal sinuses but he did have a fullness when bending over. Reviewed OTC support/comfort medications such as Tylenol/ibuprofen. Adequate hydration promoted Reviewed use of Flonase and an antihistamine to reduce drainage and inflammation in nose/sinuses/ears to help with symptoms. Neti pot/saline flushes. Humidifier encouraged. If cxr positive can consider dual abx therapy. Raf was concerned about possible anaplasmosis infection but reviewed that we would expect lessrespiratory symptoms and more fever/headache/myalgia/arthralgia symptoms. Follow up Follow Up: Return if symptoms worsen or fail to improve. Total time today including reviewing chart before the visit, pertinent labs, imaging reports, face to face time, and documentation time was 15 minutes. The above was discussed and understanding was expressed. DREW [place] documented in this encounter Nursing Notes * Stacia Laws LPN - 07/15/2024 11:02 AM EDT Pt presents to office alone with c/o cough and intermittent chills. This has been ongoing for a week and he had a telehealth appt. Pt is using inhaler and cough med but has not started steriod. Pt concerned about the chills documented in this encounter Plan of Treatment Upcoming Encounters Date Type Department Care Team (Late st Contact Info) Description 07/15/2024 1:00 PM EDT Imaging Radiology [facility] [address] [facility] [place] [address] [place] [address] Acute cough 05/24/2025 8:00 AM EDT Office Visit Urology Glenn Sweet [address] [place] [address] Danya Chanel PA-C [place] [address] Pending Results Name Type Priority Associated Diagnoses Date /Time XR CHEST 2 VIEWS Medical Imaging Routine Acute cough 07/15/2024 12:29 PM EDT Scheduled Orders Name Type Priority Associated Diagnoses Orde r Schedule XR CHEST 2 VIEWS Medical Imaging Routine Acute cough Expected: 07/15/2024, Expires: 08/15/2024 Scheduled Procedures Name Priority Associated Diagnoses Date/Ti [...] as of this encounter Visit Diagnoses Diagnosis Acute cough- Primary Non-recurrent acute suppurative otitis media of both ears without spontaneous rupture of tympanic membranes Acute cough documented in this encounter
--- OUTSIDE RECORDS SUMMARY | 2024-12-18 18:47 | External Medical Summary ---
Author Name Unknown Address Unknown Organization [id number]:[facility] [place] [address] [place] [address] Laboratory Report Ordering Provider Test Date Status BELLA CARVER 07/10/2024 11:49:52 Final Observation Date Value Abnormality Reference (Units ) Status PSA 07/10/2024 11:49:52 0.73 <2.00 (ng/ mL) Final Performing Location [facility] - [address] [place] [address]
[2024-12-18] MEDS: TAMSULOSIN HCL 0.4 MG CAP PO SCH (20:20)
[2024-12-18] MEDS: HEPARIN SOD 5,000 UNIT/0.5 ML VIAL SQ SCH (20:20)
[2024-12-18 21:19] LABS: Appearance Urine Turbid (Clear); Bacteria Urine Automated None Seen (None Seen); Bilirubin Urine Negative (Negative); Blood Urine 1+ (Negative); Cast Urine Automated >20 /lpf (0-2); Color Urine Yellow; Epithelial Cell Urine Auto >20 /hpf (0-2); Glucose Urine UA Negative (Negative); Granular Casts Urine Present /lpf (None Prsent); Ketones Urine Trace (Negative); Leukocyte Esterase Urine Negative (Negative); Nitrite Urine Negative (Negative); Protein Urine 2+ (Negative); RBC Urine Automated 0-2 /hpf (0-2); Specific Gravity Urine 1.021 (1.000-1.030); Urobilinogen Urine Negative (Negative)
[2024-12-19] MEDS: LOPERAMIDE HCL 2 MG CAP PO STA (02:52)
[2024-12-19 08:22] LABS: BUN Creatinine Ratio 11.8 (10-20); Calcium 8.5 mg/dl (8.6-10.3); Creatinine Clr Calc Pharmacy 39.2 ml/min; Potassium 2.9 mmol/L (3.5-5.1)
[2024-12-19 08:48] LABS: Hematocrit (blood only) 39.6 % (42.0-52.0); Hemoglobin 14.1 g/dl (14.0-18.0); Mean Corpuscular Hemoglobin 29.6 pg (25.0-34.0); Mean Corpuscular Hgb Conc 35.6 g/dL (32.0-36.0); Mean Corpuscular Volume 83.2 fL (80.0-100.0); Mean Platelet Volume 10.4 fL (9.4-12.4); Platelet Count 198 K/uL (130-400); RDW Standard Deviation 36.6 fL (36.4-46.3); Red Blood Count 4.76 M/uL (4.70-6.10); White Blood Count 7.47 K/ul (4.8-10.8)
[2024-12-19] MEDS: cefTRIAXone SODIUM 2,000 MG/50 ML BAG IV SCH (13:04)
[2024-12-19] MEDS: POTASSIUM CHLORIDE / WTR 10 MEQ/100 ML PLCT IV SCH ×2 (15:34→22:15)
[2024-12-19] MEDS: POTASSIUM CHLORIDE CRTAB 20 MEQ TABCR PO STA ×2 (15:35→22:15)
--- NOTE | 2024-12-19 16:23 | Hospitalist Progress Note ---
Date of Service December 19, 2024 Assessment & Plan (1) Dehydration: (2) Salmonella gastroenteritis: Plan: This is a 44y/o M with PMHx significant for BPH with LUTS and mild intermittent asthma without complication who presented to the ED with complaints of nausea, vomiting and diarrhea since last Wednesday after a recent trip to [facility]. Found to have an ROMAINE in the setting of poor oral intake 2/2 salmonella gastroenteritis. Relatively hypotensive but otherwise VSS on admission. Initial laboratory evaluation reviewed. No leukocytosis. Stool salmonella PCR positive. Lactate negative. S/p 2g IV Rocephin and 1L NSS in ED. Contact precautions. Continue IV Rocephin 2g Q24H and fluid resuscitation as per below given ROMAINE Tolerating full liquid diet (3) ROMAINE (acute kidney injury): Plan: Noted to have an ROMAINE with Cr of 3.86 on admission(baseline Cr ~1.1-1.2 per chart review) Cr improved from 3.86 -> 2.72 today Suspect due to hypovolemia/dehydration in the setting of underlying gastroin testinal illness as per above. BUN 28 Continue LR @ 125 ml/hr Monitor renal function closely with daily labs and renally dose medications when able (4) Hypokalemia: Plan: 2/2 GI losses as above K 2.9 this AM, repleting with repeat BMP this evening (5) BPH (benign prostatic hyperplasia): Plan: Chronic, stable. Follows with [facility]. Continue Flomax DVT Prophylaxis: SQ Heparin Code Status: FULL PCP: Chen Frankel, Disposition: Admitted to med/telemetry Patient seen in collaboration with Dr. Freed. I spent a total of 50 minutes coordinating, documenting, and providing care for this patient excluding time spent in the performance of separately billed services or time spent by another provider/QHP. Admission and Anticipated Discharge Date Admission Date: December 18, 2024 Supervising Physician Co-Signing Physician Notes I have seen and discussed the case with the collaborating advanced practitioner. I agree with the above PN. I have reviewed and confirmed the patients medical history, the findings on physical examination, and the patients diagnosis and treatment plan with Shun OLMSTEAD and agree with the information documented. Mr. Cantu is admitted for management of salmonella gastroenteritis iso recent travel to [facility]. Patient with ROMAINE on admission, which is downtrending appropriately at this time. Possible discharge in 1-2 days contingent on contiinued renal recovery with likely renally dosed cipro PO to complete course of abx given severity of illness. Rest of plan as above. I spent a total of 5 minutes coordinating, documenting, and providing care for this patient excluding time spent in the performance of separately billed ser vices. All of the aforementioned completed outside of collaborating with the assigned advanced practitioner for a full treatment plan. I have reviewed the advanced practitioner's documentation, and I agree with, and take responsibility for the plan of care Subjective Patient seen and examined in 263. Feeling better this morning but endorsing persistent watery diarrhea overnight. Last episode 0700. Tolerated breakfast of cream of wheat and yogurt. No vomiting since last evening. Still having intermittent abdominal bloating but denies pain. Denies any fever, chills, lightheadedness, chest pain, shortness of breath, dysuria. Review of Systems Review of Systems: At least ten systems reviewed and negative, except as noted in the HPI. Physical Exam Physical Exam: Gen: WD/WN, NAD, resting in bed comfortably, A&Ox3, appears acutely ill HEENT: Normocephalic, atraumatic, conjunctivae moist, sclerae anicteric, dry muc ous membranes of oropharynx Lung: Clear to Auscultation bilaterally, no wheezes/rales/rhonchi Heart: Regular rate, regular rhythm, no murmurs, rubs, or gallops Abdomen: Soft, mild distention but non-tender, ND +BS x 4 Extremities: no edema Skin: Warm, no rash Results & Data Results & Data Vital Signs (Past 12 Hours) Vital Signs Temp Pulse Pulse Resp BP Pulse Ox O2 Del Method 12/19/24 15:59 36.6 C 72 16 109/70 96 Room Air 12/19/24 14:10 75 12/19/24 11:16 36.7 C 74 18 119/69 97 Room Air 12/19/24 08:00 Room Air 12/19/24 07:20 36.6 C 77 20 130/73 97 Room Air 12/19/24 07:00 89 Laboratory Results Short CBC 12/19/24 Range/Units 07:01 WBC 7.47 (4.8-10.8) K/ul Hgb 14.1 D (14.0-18.0) g/dl Hct 39.6 L (42.0-52.0) % Plt Count 198 (130-400) K/uL BMP 12/19/24 07:01 Sodium 132 L Potassium 2.9 L Chloride 96 L Carbon Dioxide 28 BUN 32 H Creatinine 2.72 H D Glucose 106 H Calcium 8.5 L Urine 12/18/24 Range/Units Unknown Urine Color Yellow Urine Appearance Turbid A (Clear) Urine pH 5.0 (4.5-7.5) Ur Specific [place] 1.021 (1.000-1.030) Urine Protein 2+ H (Negative) Urine Glucose (UA) Negative (Negative) (5) BPH (benign prostatic hyperplasia) Lower urinary tract symptom detail: unspecified Lower urinary tract symptom presence: symptoms present Qualified Code(s): N40.1 - Benign prostatic hyperplasia with lower urinary tract symptoms
[2024-12-19 19:32] VITALS: RESP 18
[2024-12-19 20:10] LABS: BUN Creatinine Ratio 12.7 (10-20); Calcium 8.3 mg/dl (8.6-10.3); Creatinine Clr Calc Pharmacy 64.6 ml/min; Potassium 3.2 mmol/L (3.5-5.1)
[2024-12-20 07:35] VITALS: TEMP 97.5; O2SAT 96
[2024-12-20 08:51] LABS: Hematocrit (blood only) 37.9 % (42.0-52.0); Hemoglobin 13.4 g/dl (14.0-18.0); Mean Corpuscular Hemoglobin 29.8 pg (25.0-34.0); Mean Corpuscular Hgb Conc 35.4 g/dL (32.0-36.0); Mean Corpuscular Volume 84.4 fL (80.0-100.0); Mean Platelet Volume 9.8 fL (9.4-12.4); Platelet Count 222 K/uL (130-400); RDW Standard Deviation 36.7 fL (36.4-46.3); Red Blood Count 4.49 M/uL (4.70-6.10); White Blood Count 8.13 K/ul (4.8-10.8)
[2024-12-20 09:12] LABS: BUN Creatinine Ratio 10.4 (10-20); Calcium 8.6 mg/dl (8.6-10.3); Creatinine Clr Calc Pharmacy 79.7 ml/min; Magnesium 2.1 mg/dl (1.7-2.4); Potassium 3.7 mmol/L (3.5-5.1)
[2024-12-20 10:42] VITALS: BP 107/67; PULSE 72
--- NOTE | 2024-12-20 10:47 | Discharge Summary ---
Discharge Summary Date of Service December 20, 2024 Principal Dx & Hospital Course #1 = Principal Diagnosis (1) Dehydration: (2) Salmonella gastroenteritis: This is a 44y/o M with PMHx significant for BPH with LUTS and mild intermittent asthma without complication who presented to the ED with complaints of nausea, vomiting and diarrhea since last Wednesday after a recent trip to [facility]. Found to have an ROMAINE in the setting of poor oral intake 2/2 salmonella gastroenteritis. Relatively hypotensive but otherwise VSS on admission. Initial laboratory evaluation reviewed No leukocytosis. Stool salmonella PCR positive. Lactate negative. S/p 2g IV Rocephin and 1L NSS in ED Treated with IV Rocephin 2g Q24H and fluid resuscitation Symptomatic improvement, tolerating full liquid diet Discharge on Cipro to complete 7d antibiotic course for severe infectious diarrheal course Educated on good hand washing, contact precautions to avoid spread of illness (3) ROMAINE (acute kidney injury): ROMAINE with Cr of 3.86 on admission (baseline Cr ~1.1-1.2 per chart review) Cr improved from 3.86 -> 2.72 -> 1.34 today Hypovolemia/dehydration 2/2 underlying gastrointestinal illness and GI losses as above Able to tolerate PO intake Repeat BMP within 1 week to ensure renal function back to baseline (4) Hypokalemia: 2/2 GI losses as above Has required repletion during admission 2/2 GI losses Discharge with 40meq KCl daily x 5 days Repeat BMP within 1 week, PCP follow up (5) BPH (benign prostatic hyperplasia): Chronic, stable. Follows with [facility]. Continue Flomax Care coordinated with Dr. Wray. Notes For Next Care Provider ROMAINE 2/2 salmonella gastroenteritis. Repeat BMP in 1 week Medication Changes From Visit Ciprofloxacin twice daily x 5 days to complete course Potassium chloride 40meq daily x 5 days Admission HPI Per Admitting Provider Raf Cantu is a relatively healthy 44y/o M with PMHx significant for BPH with LUTS and mild intermittent asthma without complication who presented to the ED with complaints of nausea, vomiting and diarrhea since last Wednesday. History obtained from the patient, at bedside, discussion with ED provider and associated chart review. Recent travel to [facility] for vacation. Traveled home over the weekend. Started to develop loose, watery diarrhea last Wednesday. Had an episode of vomiting this past Wednesday but none since. Denies any bloody diarrhea but endorses poor oral intake due to nausea and gastrointestinal upset. No abdominal pain but reports some generalized cramping before the diarrhea occurs. Mentions that he has been passing loose, watery bowel movements every 10-20 minutes since last Wednesday. Had some chills with associated sweating this past Wednesday but no recorded fevers. Denies any dysuria or hematuria although does note decreased urine output in the setting of poor oral intake. No skin rashes. Relatively hypotensive but otherwise VSS on admission. Initial laboratory evaluation reviewed. Stool salmonella PCR positive. No leukocytosis. Na 134, K+ 3.4 and BUN 28. Evidence of ROMAINE with Cr of 3.86; anion gap of 15. Admission Exam Per Admitting Provider General: NAD, laying down in bed, conversing appropriately. A+Ox3. at bedside. Decreased skin turgor. HEENT: Normocephalic, atraumatic. Conjunctivae normal. External ear and nose normal, oropharynx quite dry. Respiratory: Normal respiratory effort, lungs clear to auscultation bilaterally. No accessory muscle use. Cardiovascular: Mildly tachycardic rate, regular rhythm. Normal peripheral pulses. No BLE edema. Abdomen/GI: Normoactive bowel sounds, soft. Nondistended, nontender to palpation in all quadrants. Extremities/Musculoskeletal: No cyanosis or clubbing, extremities motor strength intact, moves all extremities. Discharge Exam Gen: WD/WN, NAD, resting in bed comfortably, A&Ox3, appears more comfortable HEENT: Normocephalic, atraumatic, conjunctivae moist, sclerae anicteric Lung: Clear to Auscultation bilaterally, no wheezes/rales/rhonchi Heart: Regular rate, regular rhythm, no murmurs, rubs, or gallops Abdomen: Soft, NT, ND +BS x 4 Extremities: no edema Skin: Warm, no rash Updated Medication List Medication Instructions Recorded Confirmed Type tamsulosin 0.4 mg capsule 0.4 mg PO HS 12/18/24 12/18/24 History zolpidem 10 mg tablet 10 mg PO HS PRN Sleep 12/18/24 12/18/24 History ciprofloxacin HCl 500 mg tablet 500 mg PO BID #10 tabs 12/20/24 Rx potassium chloride 20 mEq 40 meq (2 x 20 mEq) PO DAILY #10 12/20/24 Rx tablet,extended release tabs Hospital Stay Data Pending Results Patient Have Any Pending Studies at Discharge: No Discharge Instructions Given to Patient (Per Discharging Provider) MEDICATION CHANGES: Ciprofloxacin twice daily x 5 days to complete course Continue potassium chloride 40meq daily x 5 days. SUMMARY OF TEST RESULTS: You were admitted to hospital secondary to diarrhea Stool salmonella PCR positive Acute kidney injury with Cr 3.86 initially -> improved to 1.34 with IV fluids PENDING TEST RESULTS: None RECOMMENDATIONS FOR FOLLOW-UP: Follow up with PCP as scheduled. Repeat BMP within 1 week to check potassium and kidney function. Complete antibiotic in its entirety. Practice good hand hygiene to avoid spread of illness. Continue with bland diet and expand as able. OTHER INSTRUCTIONS: Seek medical attention if you have: * temperature above 101 * chest pain or trouble breathing * abdominal pain, nausea, vomiting * diarrhea, dark stools or bloody stools * any unanswered questions or concerns Call 911 if symptoms are severe. Please take good care of yourself. Call if you have any questions or problems. You can reach a [facility] hospitalist on duty at [facility] 24 hours a day by calling [phone]. Total Time Total Time Spent Total Time Spent (In Minutes): 45 Supervising Physician Co-Signing Physician Notes Patient is seen and examined on day of discharge. States having diarrhea but otherwise no complaints. Abdominal pain resolved. Tolerating diet. Denies any chest pain, dyspnea, nausea, vomiting, dizziness. On exam patient is moderately built and nourished, no apparent distress, normocephalic atraumatic, EOMI, normal breath sounds, clear to auscultation, S1-S2, no murmur, no pedal edema, abdomen soft, nontender, normal bowel sounds, alert, awake, oriented, grossly no focal deficits.Patient is currently being managed for Salmonella gastroenteritis, acute kidney injury, hypokalemia. Agree with transitioning IV Rocephin to oral antibiotics. Monitor and replete electrolytes as needed. Advised to get BMP in 1 week to monitor his renal function, electrolytes. Plan to be discharged home today. I personally interviewed and examined the patient at bedside. I have reviewed the advanced practitioner's documentation on the date of service referred in note and agree with plan. Patient's care is coordinated with Jayda Hoffmann PA-C. Please refer to the documentation above for details of patient's presentation and for discussion of other issues. I spent a total [id number] coordinating, documenting, and providing care for this patient excluding time spent in the performance of separately billed services or time spent by another provider/QHP.
== END 2024-12-20 11:15 | disposition home or self-care (01) | DRG 372 ==
LOC: ED 11:22 → SUATTDRO 14:53 → EDINP 16:29 → 2W 16:47